=== PATIENT | female | born 1995 | race African-American/Black ===

== ENCOUNTER 2018-02-19 11:33 | Emergency (ER) | END 2018-02-19 14:36 | disposition home or self-care (01) ==

== ENCOUNTER 2018-05-29 15:42 | Inpatient (IN) | payer OTHER ==
[~2018-05-29] VITALS: Ht 162.6 cm; Wt 60.1 kg
[~2018-05-29 15:42] MED LIST: ACET500C5 PO; RANI150T35 PO
[2018-05-29 16:09] VITALS: BP 135/86; PULSE 67; RESP 20; Ht 162.6 cm; Wt 60.1 kg
[2018-05-29] MEDS ORDERED: LACTATED RINGER'S 500 ML IV SCH (17:00)
[2018-05-29] MEDS: TERBUTALINE 1 MG/ML INJ SC PRN ×2 (17:03→17:53)
[2018-05-29] MEDS ORDERED: MAGNESIUM SULFATE 4 GM/100 ML 100 ML IV ONE (19:00)
--- NOTE | 2018-05-29 19:32 | TRIAGE ---
OB Triage Datetime Report Generated by CPN: 05/29/2018 19:32 Datetime: 05/29/2018 19:19 Membrane Status: Intact Datetime: 05/29/2018 19:00 Labor Evaluation Frequency: 2-7 Monitor Mode: External Duration (sec)2399: 60 Quality: Mild Pattern: Normal: <= 5 Contractions in 10 Minutes Resting Tone [place]: Relaxed Heart Rate FHR Baseline Rate: 150 Monitor Mode: External US FHR Baseline Changes: No Baseline Change Variability: Moderate 6-25 bpm Accelerations: 15X15 Decelerations: None Category: Category I Pain Assessment Pain Scale: 7 Pain Presence: Intermittent Pain Type: Contraction Pain Location: Abdomen Pain Goal: 0 Datetime: 05/29/2018 17:59 Labor Evaluation Frequency: 2-5 Monitor Mode: External Duration (sec)2399: 40-80 Quality: Mild Pattern: Normal: <= 5 Contractions in 10 Minutes Resting Tone [place]: Relaxed Heart Rate FHR Baseline Rate: 145 Monitor Mode: External US FHR Baseline Changes: No Baseline Change Variability: Moderate 6-25 bpm Accelerations: 15X15 Decelerations: None Category: Category I Pain Assessment Pain Scale: 7 Pain Presence: Intermittent Pain Type: Contraction Pain Location: Abdomen Pain Goal: 0 Datetime: 05/29/2018 17:30 Labor Evaluation Frequency: 2-23 Monitor Mode: External Duration (sec)2399: 40-60 Quality: Mild Pattern: Normal: <= 5 Contractions in 10 Minutes Resting Tone [place]: Relaxed Heart Rate FHR Baseline Rate: 140 Monitor Mode: External US FHR Baseline Changes: No Baseline Change Variability: Moderate 6-25 bpm Accelerations: 15X15 Decelerations: None Category: Category I Pain Assessment Pain Scale: 7 Pain Presence: Intermittent Pain Type: Contraction Pain Location: Abdomen Pain Goal: 0 Datetime: 05/29/2018 17:25 Vaginal Exam Dilatation (cms): 0.0 Exam By: MELINDA Datetime: 05/29/2018 17:00 Labor Evaluation Frequency: 2-8 Monitor Mode: External Duration (sec)2399: 40-80 Quality: Strong Pattern: Normal: <= 5 Contractions in 10 Minutes Resting Tone [place]: Relaxed Heart Rate FHR Baseline Rate: 130 Monitor Mode: External US FHR Baseline Changes: No Baseline Change Variability: Moderate 6-25 bpm Accelerations: 15X15 Decelerations: None Category: Category I Pain Assessment Pain Scale: 7 Pain Presence: Intermittent Pain Type: Contraction Pain Location: Abdomen Pain Goal: 0 Datetime: 05/29/2018 15:57 Stage of : OB Triage Assessment Type: Triage Time of Arrival: 05/29/2018 15:36 EGA: 33.0 Chief Complaint: UC'S SINCE 1500 AND LEAKING SINCE 05/28/18 @ 1400 Movement: Present Contractions: Regular Time Contractions Began: 05/29/2018 15:00 Contractions: 5 Rupture of Membranes: Unsure Vaginal Discharge: Present Recent Sexual Intercouse: Denies Abdominal Trauma: Not Applicable Patient Complaints: Contractions Time Provider Notified: 05/29/2018 16:31 Provider Notified: DR BARRERA Initial Plan: EFM, BPP, EFW Maternal Assessment Level of Consciousness: Fully Conscious DTR's/Clonus: DTRs 2+; No Clonus Headache: Denies Blurred Vision: No Respiratory Effort: Unlabored; Regular Rhythm; Equal Expansion Nausea/Vomiting: Denies RUQ Epigastric Pain: Denies Lower Extremities Edema: None Degree: None Upper Extremities Edema: None Degree: None Facial Edema: None Fall Risk Assessment History of Falling: (0) No Secondary Diagnosis: (0) No Ambulatory Aid: (0) Bedrest/Nurse Assist IV Therapy: (0) No Gait: (0) Normal/Bedrest/Immobile Mental Status: (0) Oriented to Own Ability Fall Score: 0 Fall Risk Score Definition: No Risk: No action required
[2018-05-29] MEDS ORDERED: ONDANSETRON 4 MG INJ IV PRN (20:00)
[2018-05-29] MEDS: MAGNESIUM SULFATE 20 GM/500 ML 500 ML IV SCH (20:01)
[2018-05-29] MEDS: FERROUS SULFATE (EC) 325 MG TAB PO SCH (21:00)
[2018-05-29] MEDS: ACETAMINOPHEN 325 MG TAB PO PRN (22:56)
[2018-05-29] MEDS: DEXAMETHASONE 4 MG/ML 5 ML INJ IM SCH (23:03)
[2018-05-30] MEDS: LACTATED RINGER'S 1,000 ML IV SCH ×4 (00:13→19:00)
--- NOTE | 2018-05-30 05:08 | PREOPHP ---
DATE OF ADMISSION: 05/29/2018 HISTORY OF PRESENT ILLNESS: This is a 22-year-old lady, 2, para 1. Her EDC is 07/17/2018. Admitted to 33 weeks , admitted to labor and delivery area complaining of lower abdominal marilu ns and low back pains. This started about a few hours prior to admission and got worse up to the don e of admission. The patient claims that she may have ruptured her bag of water. She had ca re in my [place] office as a late entry when she came in March 2018. This patient has a history o f labor and delivered her first child at 35 weeks. She claims that with the first child, sh e had high blood pressure and her bag of water ruptured. PAST PERSONAL HISTORY: No history of diabetes, TB, asthma. ALLERGIES: NO ALLERGIES. SOCIAL HISTORY: Patient does not smoke. She does not drink. MEDICATIONS: She does not take any drugs except her iron and vitamins. GYNECOLOGIC HISTORY: She had menarche at the age of 16, every 28 days interval, 3 to 4 days duration , and moderate in amount. FAMILY HISTORY: Her mother and aunt have diabetes and mother has hypertension. She is 2, pa ra 1. Her first delivery was on 11/20/2016 at 35 weeks, normal delivery. REVIEW OF SYSTEMS: CARDIOVASCULAR: No chest pains. RESPIRATORY: No cough. GASTROINTESTINAL: No diarrhea, no vomiting. GENITOURINARY: No dysuria. PHYSICAL EXAMINATION: GENERAL: Reveals a conscious, coherent lady in no acute distress. VITAL SIGNS: Her blood pressure 120/80, pulse rate 80 per minute, respirations 16 per minute. BREASTS, HEART AND LUNGS: Within normal limits. ABDOMEN: Soft, fundic height 30 cm. heart tones 140 per minute. PELVIC: Deferred. EXTREMITIES: No pedal edema. ADMITTING DIAGNOSIS: A 33 week intrauterine , rule out labor, rule out ruptured bag of water. The patient had an ultrasound done and the ultrasound revealed an MAURA of 19. She had ROM plus and it was negative. FFN was positive. Ultrasound showed that the external os was closed and the internal os is 1 cm dilated. PLAN: The patient was planned to have IV hydration and all labs to be done, including CBC, and the C BC was normal. She was given terbutaline followed by magnesium sulfate, as well she was given betame thasone. She will have perinatology consult. The plans were explained to the patient and she unders tood everything totally. The risks, benefits, and alternatives were discussed with her as well. Dictated By: LISETTE ARTIS/NTS Conf#: [id number] DID#: [id number] CC: LISETTE BARRERA MD;*EndCC*
[2018-05-30] MEDS: MAGNESIUM SULFATE 20 GM/500 ML 500 ML IV SCH ×2 (06:02→16:58)
[2018-05-30] MEDS: PRENATAL VITAMIN PO SCH (10:15)
[2018-05-30] MEDS: FERROUS SULFATE (EC) 325 MG TAB PO SCH ×3 (10:15→21:35)
[2018-05-30] MEDS: DEXAMETHASONE 4 MG/ML 5 ML INJ IM SCH ×2 (11:06→23:28)
[2018-05-30] MEDS: CEFAZOLIN 2 GM/50 ML (PMX) 50 ML IVPB SCH ×2 (13:21→22:29)
[2018-05-30] MEDS: ACETAMINOPHEN 325 MG TAB PO PRN ×2 (14:08→18:23)
[2018-05-30] MEDS ORDERED: BISACODYL (EC) 5 MG TAB PO ONE ×2 (15:30→19:00)
[2018-05-30] MEDS: AL HYDROX/MG HYDROX/SIMETH 30 ML CUP PO PRN ×2 (15:30→18:31)
[2018-05-30] MEDS ORDERED: DOCUSATE SODIUM 100 MG CAP PO PRN (19:00)
[2018-05-30] MEDS ORDERED: MAGNESIUM HYDROXIDE 30ML CUP PO SCH (21:00)
[2018-05-31] MEDS: LACTATED RINGER'S 1,000 ML IV SCH (01:33)
--- NOTE | 2018-05-31 04:24 | PN ---
DATE: 05/30/2018 SUBJECTIVE: The patient feels good. No complaint of lower abdominal pains. OBJECTIVE: VITAL SIGNS: She is afebrile. Vital signs stable. ABDOMEN: Soft, no tenderness noted. Fundic height is 33 cm. heart tones 140 per minute. No discharge noted. EXTREMITIES: No calf tenderness. ASSESSMENT: A 33 and 1/7 weeks intrauterine with urinary tract infection and labor . PLAN: To continue with the dexamethasone and to put her on magnesium sulfate 1 gram per hour. She w as feeling weak and the magnesium level is 6.1. Dr. Sinclair is going to see the patient tomorrow. Dictated By: LISETTE BARRERA MD NS/NTS Conf#: [id number] DID#: [id number] CC: NADIR BAIG MD;*EndCC*
[2018-05-31] MEDS: CEFAZOLIN 2 GM/50 ML (PMX) 50 ML IVPB SCH ×2 (06:00→15:10)
[2018-05-31] MEDS ORDERED: MAGNESIUM HYDROXIDE 30ML CUP PO PRN (06:30)
[2018-05-31] MEDS: DOCUSATE SODIUM 100 MG CAP PO SCH ×2 (09:00→13:00)
[2018-05-31] MEDS: FERROUS SULFATE (EC) 325 MG TAB PO SCH ×2 (10:09→15:13)
[2018-05-31] MEDS: PRENATAL VITAMIN PO SCH (10:09)
[2018-05-31] MEDS: MAGNESIUM SULFATE 20 GM/500 ML 500 ML IV SCH (10:11)
[2018-05-31] MEDS: ACETAMINOPHEN 325 MG TAB PO PRN (11:02)
[2018-05-31] MEDS: DEXAMETHASONE 4 MG/ML 5 ML INJ IM SCH (11:02)
--- NOTE | 2018-06-02 10:44 | PN ---
DATE: 05/31/2018 TIME: 8:00 a.m. SUBJECTIVE: The patient feels good. Has minimal lower abdominal pains. OBJECTIVE: VITAL SIGNS: She is afebrile. Vital signs stable. ABDOMEN: Soft. No tenderness noted. PELVIC: Revealed the cervix to be closed. No bleeding noted. EXTREMITIES: No pedal edema. ASSESSMENT: A 33-2/7 week's intrauterine . History of labor in labor. PLAN: Patient was advised to wait for Dr. Sinclair as a consultation was requested and the patient agre ed to wait for Dr. Sinclair. Dictated By: LISETTE BARRERA MD NS/NTS Conf#: [id number] DID#: [id number] CC: LISETTE BARRERA MD;*EndCC*
--- NOTE | 2018-06-02 10:49 | DS ---
DATE OF ADMISSION: 05/29/2018 DATE OF DISCHARGE: 05/31/2018 Against medical advice 05/31/2018. HISTORY OF PRESENT ILLNESS: See dictated history and physical. PHYSICAL EXAMINATION: See dictated history and physical. ADMITTING DIAGNOSIS: 33 weeks intrauterine with labor, progress of labor. PROGRESS OF LABOR: See dictated history and physical. Patient was advised to be observed in the [facility]. She has a history of labor and medications were given to her and she felt better and no pain. On 05/31/2018 patient called me that the patient wanted to sign home against medical advic e. I spoke with the patient. I counseled her and she still wanted to go for AMA, so she was dischar [facility] home AMA and she was told to keep her appointment in the clinic. She was discharged home AMA. DISCHARGE DIAGNOSIS: 33 and 2/7 weeks intrauterine . FINAL DIAGNOSIS: 33 and 2/7 weeks intrauterine who presents labor, history of pret erm labor. Dictated By: LISETTE BARRERA MD NS/NTS Conf#: [id number] DID#: [id number] CC: LISETTE BARRERA MD;*EndCC*
--- NOTE | 2018-06-03 14:06 | CONS ---
DATE OF ADMISSION: 05/29/2018 DATE OF CONSULTATION: 05/31/2018 HISTORY OF PRESENT ILLNESS: The patient is IUP at 33 weeks and 3 days, presented with abdominal pain . Cervical length was 3 mm. She was placed on magnesium sulfate, given dexamethasone. Prior history of delivery at 35 weeks. REVIEW OF SYSTEMS: All systems reviewed. They are negative. PHYSICAL EXAMINATION: VITAL SIGNS: Stable. Physical examination deferred. heart tones are reassuring for gestational age. Contractions n one, but irritability. IMPRESSION: Intrauterine at 33 weeks and 3 days with labor on dexamethasone. RECOMMENDATIONS: In-house management at least for 1 week, probably more than that given her very isauro rt cervical length. Stop the magnesium sulfate 24 hours after the second dose of dexamethasone. After that, Procardia 10 -20 mg every 6 hours, depending on her blood pressure, would be beneficial. Estimated weight and NICU consult. Dictated By: ARYAN GARCIA MD ST/NTS Conf#: [id number] DID#: [id number] CC: LISETTE BARRERA MD;*EndCC*
== END 2018-05-31 18:46 | disposition left against medical advice (07) | DRG 832 ==
LOC: OBT 15:42 → L-D 15:43 → OBT 18:55 → PP1 05-30 00:14
PROVIDERS: ADMIT Obstetrics & Gynecology; ATTEND Obstetrics & Gynecology
DX: O60.03 Preterm labor without delivery, third trimester (principal); O23.43 Unspecified infection of urinary tract in pregnancy, third trimester; O26.873 Cervical shortening, third trimester; O09.213 Supervision of pregnancy with history of pre-term labor, third trimester; Z3A.33 33 weeks gestation of pregnancy
CPT/HCPCS: 36415; 76815; 76817; 76818; 81001; 82731; 83735; 84112; 85025; 86592; 86900; 86901; 87086; 96360; 96361; 96372; G0463; J0690; J1100; J2405; J3105; J3475; J7120

== ENCOUNTER 2018-06-02 21:55 | Inpatient (IN) | payer OTHER ==
[~2018-06-02] VITALS: Ht 162.6 cm; Wt 64.2 kg
[2018-06-02 21:41] VITALS: Ht 162.6 cm; Wt 64.2 kg
[2018-06-02 22:00] VITALS: BP 138/92; PULSE 74; RESP 17
[2018-06-03] MEDS ORDERED: AL HYDROX/MG HYDROX/SIMETH 30 ML CUP PO PRN (02:00)
[2018-06-03] MEDS ORDERED: TERBUTALINE 1 MG/ML INJ SC PRN (02:00)
[2018-06-03] MEDS: LACTATED RINGER'S 1,000 ML IV SCH ×2 (02:08→03:46)
[2018-06-03] MEDS ORDERED: HYDROCODONE/APAP (5/325) TAB PO ONE (05:00)
--- NOTE | 2018-06-03 05:07 | HP ---
Date/Time of Note Date/Time of Note DATE: 06/03/18 TIME: 04:53 OB - History Hx of Present Free Text/Dictation 22 years old 2 para 1001 with single intrauterine at 33 weeks and 4 days with a ELLA of 07/17/2018 presented to triage with complaint of uterine contractions. She states good movement. She denies nausea, vomiting, shortness of breath, chest pain, headache, visual changes, vaginal bleeding or LOF. She was admitted here for short cervix (0.3 cm), currently is steroid benefited. She received magnesium sulfate 2. She is signed AMA and left the hospital few days ago. Chief Complaint: Uterine contractions Estimated Due Date: Jul 17, 2018 : 2 Para: 1 Spontaneous : 0 Therapeutic : 0 Care: Good Care Ultrasounds: Normal mid trimester US Obstetrical Complications: None Medical Complications: None Past Family/Social History * Past Medical, Surgical, Family and Obstetric Histories reviewed from chart. OB Admission Exam Vital Signs Vital Signs Vital Signs Date Temp Pulse Resp B/P (MAP) Pulse Ox O2 O2 Flow FiO2 Time Delivery Rate 06/02/18 98.6 74 17 138/92 Room Air 22:00 (107) Physical Exam HEENT: WNL Heart: Rhythm Normal Lungs: Clear Abdomen: WNL Extremities: Normal Membranes: Intact Heart Rate: 130's Accelerations: Accelerations Present Decelerations: No Decelerations Varibility: Moderate Contractions on Admission: 6-10 Minutes Apart Intensity: Mild Last 72 hours Lab Results CBC & BMP 06/03/18 02:27 Liver Function Test 06/03/18 02:27 Alanine Aminotransferase (ALT/SGPT) 16 Albumin 2.8 L Alkaline Phosphatase 162 H Aspartate Amino Transf (AST/SGOT) 21 Direct Bilirubin 0.00 Total Protein 5.9 L OB Assessment/Plan Other plan: 22-year-old 2 para 1001 with single intrauterine at 33 weeks and 1 day with short cervix 1. care - heart rate category 1 -Continue external monitoring and toco -Ferrous sulfate 325 mg and -Weekly weight 2. Short cervix -She is a status post receiving magnesium sulfate and betamethasone. Currently is steroid benefit -IV fluid, she received terbutalinex1 -Urinalysis, urine culture -Procardia 10 mg every 8 hours p.o. -Neonatology and trevin-neonatology consult -Follow-up with her primary OB 3) history of positive urine drug screen for marijuana: Urine drug screen ordered ROBER SHAFER Jun 03, 2018 05:07
[2018-06-03] MEDS ORDERED: NIFEdipine 10 MG CAP PO SCH ×2 (06:00→14:00)
[2018-06-03] MEDS: PRENATAL VITAMIN PO SCH (11:15)
[2018-06-03] MEDS: ONDANSETRON 4 MG INJ IV PRN (11:22)
[2018-06-03] MEDS: DOCUSATE SODIUM 100 MG CAP PO SCH (21:00)
[2018-06-03] MEDS: ACETAMINOPHEN 325 MG TAB PO PRN (21:18)
--- NOTE | 2018-06-03 23:08 | PREOPHP ---
DATE OF ADMISSION: 06/03/2018 HISTORY OF PRESENT ILLNESS: This is a 22-year-old lady, 2 para 1 and her EDC 07/17/2018, at 33 and 4/7 weeks, readmitted because of lower abdominal pains and low back pains that started about a few hours prior to admission. This patient signed AMA about a few days prior to this admission and this time she wanted to stay because she has contractions. She had care in [facility] and the care was uneventful. PAST PERSONAL HISTORY: No history of diabetes, TB, asthma. ALLERGIES: NO ALLERGIES. SOCIAL HISTORY: The patient does not smoke. She does not drink. MEDICATIONS: She does not take any drugs except her iron and vitamins. GYNECOLOGIC HISTORY: She had menarche at the age of 16, every 28 days interval, 3 to 4 days duration , and moderate in amount. FAMILY HISTORY: On mother's side have diabetes. Mother has hypertension. She is 2, para 1. Her first delivery was in 2017. Delivered at 35 weeks . REVIEW OF SYSTEMS: CARDIOVASCULAR: No chest pains. RESPIRATORY: No cough. GASTROINTESTINAL: No diarrhea, no vomiting. GENITOURINARY: No dysuria. PHYSICAL EXAMINATION: GENERAL: Reveals a conscious, coherent lady and in no acute distress. VITAL SIGNS: Her blood pressure 120/80, pulse rate 80 per minute, respirations 16 per minute. BREASTS, HEART AND LUNGS: Within normal limits. ABDOMEN: Soft. No tenderness noted. Fundic height 33 cm. heart tones 140 per minute. PELVIC: Done, revealed the cervix to be closed. EXTREMITIES: No pedal edema. ADMITTING DIAGNOSES: A 33 and 4/7 weeks intrauterine with labor. PLAN: The patient was planned to be admitted, to bed rest and IV hydration and the plans were explai francisco to the patient and she understood everything totally. The risks, benefits, and alternatives were discussed with her as well and also perinatologist consult is to be redone. Dictated By: LISETTE ARTIS/RHETT Conf#: [id number] DID#: [id number]
[2018-06-04] MEDS: NIFEdipine 10 MG CAP PO SCH ×3 (00:08→12:00)
[2018-06-04] MEDS: LACTATED RINGER'S 1,000 ML IV SCH ×3 (02:00→11:28)
[2018-06-04] MEDS: PRENATAL VITAMIN PO SCH (10:24)
[2018-06-04] MEDS: DOCUSATE SODIUM 100 MG CAP PO SCH ×3 (10:24→21:00)
[2018-06-04] MEDS: ACETAMINOPHEN 325 MG TAB PO PRN (10:28)
[2018-06-04] MEDS ORDERED: MAGNESIUM SULFATE 4 GM/100 ML 100 ML IVPB ONE (12:00)
[2018-06-04] MEDS: FAMOTIDINE 20 MG INJ IV SCH ×2 (12:21→21:00)
[2018-06-04] MEDS: MAGNESIUM SULFATE 20 GM/500 ML 500 ML IV SCH ×2 (12:53→22:56)
--- NOTE | 2018-06-04 15:23 | PREAC ---
Date/Time of Note Date/Time of Note DATE: 06/04/18 TIME: 15:22 Anesthesia Eval and Record Evaluation Time Pre-Procedure Interview DATE: 06/04/18 TIME: 15:22 Age 22 Sex female NPO: Other less than an hour Preoperative diagnosis preeclampsia Planned procedure c section Past Medical History Past Medical History: Includes : Gestational age: (33.6) Surgery & Anesthesia Issues No known issue Meds Anticoagulation: No Beta Ilan within 24 hr: No Reason Beta Ilan not given: Pt. not on B-Ilan Discontinued Scripts Ranitidine Hcl* (Zantac*) 150 Mg Tablet, 150 MG PO BID PRN for EPIGASTRIC PAIN, #30 TAB Prov:DAMIAN ARNDT [employer] GENERALIST 02/19/18 Acetaminophen* (Tylophen*) 500 Mg Capsule, 1 CAP PO Q6H PRN for PAIN AND OR ELEVATED TEMP, #20 CAP Prov:DAMIAN ARNDT H[employer] GENERALIST 02/19/18 Current Medications Lactated Ringer's 1,000 ml @ 125 mls/hr Q8H IV Last administered on 06/04/18 11:28; Admin Dose 125 MLS/HR; Start 06/03/18 at 02:00 Terbutaline Sulfate (Brethine) 0.25 mg PRN PRN SC CONTRACTIONS Last administered on 06/03/18 03:50; Admin Dose 0.25 MG; Start 06/03/18 at 02:00 Prenat Multivit/ [place]/Iron/Folic Ac () 1 tab DAILY PO Last administered on 06/04/18 10:24; Admin Dose 1 TAB; Start 06/03/18 at 09:00 Acetaminophen (Tylenol Tab) 650 mg Q4H PRN PO .PAIN OR TEMP Last administered on 06/04/18 10:28; Admin Dose 650 MG; Start 06/03/18 at 02:00 Al Hydrox/Mg Hydrox/Simethicone (Mag-Al Plus) 30 ml Q6H PRN PO .GI UPSET Last administered on 06/04/18 10:29; Admin Dose 30 ML; Start 06/03/18 at 02:00 Ondansetron HCl (Zofran Inj) 4 mg Q6H PRN IV NAUSEA/VOMITING Last administered on 06/03/18 11:22; Admin Dose 4 MG; Start 06/03/18 at 02:00 Docusate Sodium (Colace) 100 mg TID PO Last administered on 06/04/18at 10:24; Admin Dose 100 MG; Start 06/03/18 at 21:00 Nifedipine (Procardia) 10 mg Q6H PO Last administered on 06/04/18at 06:04; Admin Dose 10 MG; Start 06/04/18 at 00:00 Magnesium Sulfate 500 ml @ 50 mls/hr Q10H IV Last administered on 06/04/18at 12:53; Admin Dose 50 MLS/HR; Start 06/04/18 at 12:00 Famotidine (Pepcid Iv) 20 mg BID IV Last administered on 06/04/18at 12:21; Admin Dose 20 MG; Start 06/04/18 at 12:00 Cefazolin Sodium/ Dextrose 50 ml @ 100 mls/hr ONCE IVPB ; Start 06/04/18 at 15:30; Status UNV Oxytocin/Lactated Ringer's 500 ml @ 0 mls/hr ONCE PRN IV .VAGINAL BLEEDING; Start 06/04/18 at 15:30; Status UNV Carboprost Tromethamine (Hemabate) 250 mcg ONCE PRN IM .VAGINAL BLEEDING; Start 06/04/18 at 15:30; Status UNV Misoprostol (Cytotec) 1,000 mcg ONCE PRN [place] .VAGINAL BLEEDING; Start 06/04/18 at 15:30; Status UNV Meds reviewed: Yes Allergies Coded Allergies: No Known Allergy (Unverified , 05/29/18) Allergies Reviewed: Yes Labs/Studies Labs Reviewed: Reviewed by anesthesiologist Result Diagram: 06/04/18 1200 06/04/18 1200 Laboratory Tests 06/04/18 12:00 test: Positive Studies: ECG (n/a), CXR (n/a) Pre-procedure Exam Last vitals Vital Signs Date Temp Pulse Resp B/P (MAP) Pulse Ox O2 O2 Flow FiO2 Time Delivery Rate 06/03/18 98.2 22:03 06/02/18 74 17 138/92 Room Air 22:00 (107) Airway: Adequate mouth opening Mallampati: Mallampati I Teeth: Normal Lung: Normal Heart: Normal ASA Physical Status ASA physical status: 2 Emergency: E Planned Anesthetic Neuraxial: Spinal Planned Pain Management Sub-arachniod narcotics Pre-operative Attestations Prior to commencing anesthesia and surgery, the patient was re-evaluated, there was verification of: *The patient's identity *The results of appropriate recent lab work and preoperative vital signs *The above evaluation not changing prior to induction *Anesthetic plan, risk benefits, alternative and complications discussed with patient/family; questions answered; patient/family understands, accepts and wishes to proceed. MISSY MATHEW MD Jun 04, 2018 15:23
[2018-06-04] MEDS ORDERED: CEFAZOLIN 2 GM/50 ML (PMX) 50 ML IVPB SCH (15:30)
[2018-06-04] MEDS ORDERED: MISOPROSTOL 200 MCG TAB PR PRN ×2 (15:30→17:30)
[2018-06-04] MEDS ORDERED: CITRIC ACID/NA CITRATE 30 ML CUP PO ONE (15:30)
[2018-06-04] MEDS ORDERED: OXYTOCIN 30 UNITS/LR 500 ML IV PRN ×2 (15:30→17:30)
[2018-06-04] MEDS ORDERED: CARBOPROST 250 MCG INJ IM PRN ×2 (15:30→17:30)
[2018-06-04] MEDS ORDERED: METOCLOPRAMIDE 10 MG INJ ONE ×2 (15:39→16:10)
--- NOTE | 2018-06-04 15:54 | PREOPHP ---
DATE OF ADMISSION: 06/03/2018 HISTORY OF PRESENT ILLNESS: This is a 22-year-old lady, 2, para 1 delivered at weeks p regnant, readmitted to labor and delivery for observation because of labor. She also has bor derline hypertension on admission. Because of the contractions, she is on Procardia 10 mg q.[address] Sinclair's requisition. PAST PERSONAL HISTORY: See dictated history and physical. PHYSICAL EXAMINATION: See dictated history and physical. ADMITTING DIAGNOSES: 1. A 33 and 4/7 weeks intrauterine . 2. History of labor. 3. -induced hypertension. HOSPITAL COURSE: The patient was observed in the hospital and in the afternoon around 2:00, the gui ent was reevaluated. In the morning, I was called by her nurse that she was having epigastric pain a nd headache. I consulted Dr. Sinclair and Dr. Sinclair advised her to have Pepcid and also I started her o n magnesium sulfate. Around 3:00, the patient still has some epigastric pain and her blood pressure was greater than 150/100. Dr. Sinclair called me and she advised the patient to be delivered. I reeval uated the patient. The cervix is closed and the station is floating. Because of the severe epigastr ic pain and also for her elevated blood pressure in spite of magnesium sulfate, the plans of delivery were explained to the patient as to go for vaginal delivery to be induced or to go for . T he patient wanted to go for for severe PIH and history of labor. The plans were ex plained to the patient and she understood everything totally. Dictated By: LISETTE ARTIS/RHETT Conf#: [id number] DID#: [id number]
[2018-06-04] MEDS ORDERED: morphine SULFATE/PF (10 MG/10 ML) INJ ONE (16:08)
[2018-06-04] MEDS ORDERED: KETOROLAC 30 MG INJ ONE (16:10)
--- NOTE | 2018-06-04 16:19 | CONS ---
DATE OF ADMISSION: 06/03/2018 DATE OF CONSULTATION: 06/04/2018 The patient I was notified has been having elevated blood pressure, headache and epigastric pain. Sh e received Mylanta and did not respond. I looked over her blood pressures and she has had more than few severe range blood pressures. Liver enzymes are normal. Platelet is normal, so is the creatinin e. However secondary to severe range blood pressure, constant epigastric pain not responding to Pepc id, I do recommend delivery and magnesium sulfate for seizure prophylaxis. The patient received dexa methasone very recently. Dictated By: ARYAN GARCIA MD ST/NTS Conf#: [id number] DID#: [id number] CC: LISETTE BARRERA MD;*End*
[2018-06-04] MEDS ORDERED: EPHEDrine 25 MG/5 ML SYG ONE (17:04)
[2018-06-04] MEDS ORDERED: LACTATED RINGER'S 1,000 ML IV SCH (17:26)
[2018-06-04] MEDS ORDERED: OXYTOCIN 30 UNITS/LR 500 ML IV SCH (17:26)
--- NOTE | 2018-06-04 17:26 | OPPN ---
Date/Time of Note Date/Time of Note DATE: 06/04/18 TIME: 17:24 Operative Report Planned Procedure Procedure date Jun 04, 2018 Procedure(s) PRIMARY CSECTION Performed by see signature line Professor Of Sport Management: JERMAINE DHILLON M.D. 2nd Professor Of Sport Management none Pre-procedure diagnosis 33 WEEKS 5 DAYS LABOR SEVERE PIH [id number] Anesthesia Type: [id number] spinal Post-Procedure Post-procedure diagnosis 33 WEEKS 5 DAYS LABOR SEVERE PIH Findings Live Baby , Apgars 8and 9, weight 3LBS 14OZ Estimated Blood Loss: 500 - 600 mls Specimen(s) none Grafts/Implant(s) PLACENTA Complication(s) none LISETTE BARRERA MD Jun 04, 2018 17:26
[2018-06-04] MEDS ORDERED: LANOLIN HPA 1 PKT TOP PRN (17:30)
[2018-06-04] MEDS ORDERED: morphine 2 MG INJ IV PRN ×3 (17:30)
[2018-06-04] MEDS ORDERED: METHYLERGONOVINE 0.2 MG INJ IM PRN (17:30)
[2018-06-04] MEDS ORDERED: NALOXONE (0.4 MG/ML) INJ IV PRN (17:30)
[2018-06-04] MEDS ORDERED: KETOROLAC 30 MG INJ IV PRN (17:30)
[2018-06-04] MEDS ORDERED: METHYLERGONOVINE 0.2 MG TAB PO PRN (17:30)
[2018-06-04] MEDS ORDERED: morphine (1 MG/ML) 10ML SYRINGE IV PRN ×3 (17:30)
[2018-06-04] MEDS ORDERED: DIPHENHYDRAMINE 50 MG INJ IV PRN ×2 (17:30)
[2018-06-04] MEDS ORDERED: HYDROCODONE/APAP (5/325) TAB PO PRN (17:30)
[2018-06-04] MEDS ORDERED: ONDANSETRON 4 MG INJ IV PRN ×2 (17:30)
[2018-06-04 20:20] VITALS: BP 140/96; PULSE 82; RESP 19
[2018-06-04 21:00] VITALS: BP 134/81; PULSE 75; RESP 18
[2018-06-04] MEDS: SENNA/DOCUSATE NA (8.6MG/50MG) TAB PO SCH (21:00)
--- NOTE | 2018-06-04 21:06 | PAC ---
Date/Time of Note Date/Time of Note DATE: 06/04/18 TIME: 21:05 Post-Anesthesia Notes Post-Anesthesia Note Last documented vital signs Vital Signs Date Temp Pulse Resp B/P (MAP) Pulse Ox O2 O2 Flow FiO2 Time Delivery Rate 06/04/18 98.2 78 19 121/85 97 22:03 06/02/18 74 17 138/92 Room Air 22:00 (107) Activity: WNL Respiratory function: WNL Cardiovascular function: WNL Mental status: Baseline Pain reasonably controlled: Yes Hydration appropriate: Yes Nausea/Vomiting absent: No MISSY MATHEW MD Jun 04, 2018 21:06
[2018-06-04 22:00] VITALS: BP 132/88; PULSE 75; RESP 18
[2018-06-04 23:00] VITALS: BP 133/91; PULSE 83; RESP 18
[2018-06-04] MEDS: ONDANSETRON 4 MG INJ IV PRN (23:05)
[2018-06-05] VITALS (19 sets, daily range): BP systolic 118–134; BP diastolic 61–93; PULSE 72–100; RESP 16–19
[2018-06-05] MEDS: NIFEdipine 10 MG CAP PO SCH ×5 (00:27→17:30)
--- NOTE | 2018-06-05 06:56 | OPPN ---
Date/Time of Note Date/Time of Note DATE: 06/05/18 TIME: 06:55 Anesthesia Follow up Anesthesia Follow up Last documented vital signs Vital Signs Date Temp Pulse Resp B/P (MAP) Pulse Ox O2 O2 Flow FiO2 Time Delivery Rate 06/05/18 75 18 131/75 04:00 (93) 06/05/18 97.9 97 00:00 06/04/18 Room Air 20:20 Respiratory function: WNL Cardiovascular function: WNL Comments A 22 year female. with spinal duramorph for post op pain POD#1 is doing fine. No headache, itching, N/V, pain, neural deficit. MISSY MATHEW MD Jun 05, 2018 06:56
[2018-06-05] MEDS: PRENATAL VITAMIN PO SCH (09:00)
[2018-06-05] MEDS: FAMOTIDINE 20 MG INJ IV SCH ×2 (09:00→21:00)
[2018-06-05] MEDS: SENNA/DOCUSATE NA (8.6MG/50MG) TAB PO SCH ×2 (09:00→21:00)
[2018-06-05] MEDS: DOCUSATE SODIUM 100 MG CAP PO SCH ×3 (09:00→21:35)
[2018-06-05] MEDS: MAGNESIUM SULFATE 20 GM/500 ML 500 ML IV SCH (10:20)
--- NOTE | 2018-06-05 15:59 | PN ---
Date/Time of Note Date/Time of Note DATE: 06/05/18 TIME: 15:57 Assessment/Plan VTE Prophylaxis Risk score (from Ns)>0 risk: 3 SCD applied (from Ns): Yes Pharmacological prophylaxis: NA/contraindicated Pharm contraindication: low risk/ambulating Lines/Catheters IV C[facility]ter Type (from [facility]): Peripheral IV Assessment/Plan Assessment/Plan POSTCSECTION DAY 1 CHRONIC IRON ANEMIA ORDERED ADVANCE DIET TOLERATED CBC ON 3RD POSTOP DAY Result Diagram: 06/05/18 0610 06/05/18 0610 Results 24hrs Laboratory Tests Test 06/04/18 16:55 06/04/18 16:56 06/04/18 18:46 06/05/18 00:21 Blood Gas CBV CBA Specimen Source Arterial Blood 06/04/2018 5:10: 06/04/2018 5:11: Date Drawn 47 PM 02 PM Arterial Blood CORD CORD Gas Puncture Site Siddhartha Test N/A N/A Cord Blood 0.3 0.7 Carboxyhemoglobi n Cord Arterial 7.255 Blood pH Cord Arterial 62.6 H Blood PCO2 Cord Arterial 27.1 Blood HCO3 Cord Arterial -1.6 Blood Base Excess Cord Arterial 15.6 Blood Hemoglobin Cord Arterial 12.1 Blood Oxyhemoglo bin Cord Arterial 2.0 Blood Methemoglo bin Blood Gas 37.0 37.0 Temperature Blood Gas ROOM AIR ROOM AIR Modality FiO2 21.0 21.0 Blood Gas A MAN RN Critical Value Read Back Blood Gas [facility] Notified Whom Blood Gas 06/04/2018 5:23: 06/04/2018 5:29: Notified Time 24 PM 37 PM Cord Venous 7.357 Blood pH Cord Venous 43.1 Blood PCO2 Cord Venous 20.3 Blood PO2 Cord Venous 23.6 Blood HCO3 Cord Venous -1.9 Blood Base Excess POC Cord Venous 51.1 Blood Oxygen Sat Cord Venous 15.9 Blood Hemoglobin Cord Venous 49.9 Blood Oxyhemoglo bin Cord Venous 1.6 Blood Methemoglo bin Blood Gas A-a O2 77.8 Differential Magnesium Level 4.7 H 5.8 *H Test 06/05/18 06:10 06/05/18 06:43 06/05/18 12:00 White Blood 10.6 # Count Red Blood Count 3.65 L Hemoglobin 9.4 L Hematocrit 29.4 L Mean Corpuscular 80.5 Volume Mean Corpuscular 25.8 L Hemoglobin Mean Corpuscular 32.0 Hemoglobin Yessy nt Red Cell 14.9 H Distribution Width Platelet Count 252 Mean Platelet 9.8 Volume Immature 0.600 H Granulocytes % Neutrophils % 83.2 H Lymphocytes % 10.5 L Monocytes % 5.1 Eosinophils % 0.4 Basophils % 0.2 Nucleated Red 0.0 Blood Cells % Immature 0.060 H Granulocytes # Neutrophils # 8.9 H Lymphocytes # 1.1 Monocytes # 0.5 Eosinophils # 0.0 Basophils # 0.0 Nucleated Red 0.0 Blood Cells # Sodium Level 132 L Potassium Level 4.0 Chloride Level 101 Carbon Dioxide 25 Level Anion Gap 6 Blood Urea 6 L Nitrogen Creatinine 0.46 Est Glomerular > 60 Filtrat Rate mL/min Glucose Level 81 Calcium Level 6.8 L Magnesium Level 6.3 *H 5.8 *H Lab Scanned BLOOD TRANSFUSI Report ON Subjective 24 Hr Interval Summary Free Text/Dictation POST CSECTION DAY 1 COMPLAIN OF INCISIONAL PAINS GOOD URINE OUTPUT PASSING GAS PER RECTUM NO BOWEL MOVEMENT YET Exam/Review of Systems Exam Vitals Vital Signs Date Temp Pulse Resp B/P (MAP) Pulse Ox O2 O2 Flow FiO2 Time Delivery Rate 06/05/18 82 18 129/72 15:30 (91) 06/05/18 Room Air 14:30 06/05/18 98.5 97 07:30 Intake and Output 06/04/18 06/04/18 06/05/18 1515:00 23:00 07:00 IntakeIntake Total 100 ml 1000 ml OutputOutput Total 250 ml 1100 ml 1800 ml BalanceBalance -150 ml -100 ml -1800 ml Exam VITAL SIGNS STABLE: YES AFEBRILE: YES BREAST NOT ENGORGED, NON-TENDER, NO APPRECIABLE MASS: YES LUNGS CLEAR, NO RALES, WHEEZES, RHONCHI: YES SINUS RHYTHM WITHOUT MURMUR: YES ABDOMEN: NON-TENDER FUNDUS: BELOW UMBILICUS BOWEL SOUNDS: PRESENT UTERUS: FIRM INCISION (CLEAN, DRY, AND INTACT): YES LOCHIA: LIGHT DEEP TENDON REFLEXES: 0 EXTREMITIES: NO CALF TENDERNESS EDEMA SCALE: NONE Results Results 24hrs Laboratory Tests Test 06/04/18 16:55 06/04/18 16:56 06/04/18 18:46 06/05/18 00:21 Blood Gas CBV CBA Specimen Source Arterial Blood 06/04/2018 5:10: 06/04/2018 5:11: Date Drawn 47 PM 02 PM Arterial Blood CORD CORD Gas Puncture Site Siddhartha Test N/A N/A Cord Blood 0.3 0.7 Carboxyhemoglobi n Cord Arterial 7.255 Blood pH Cord Arterial 62.6 H Blood PCO2 Cord Arterial 27.1 Blood HCO3 Cord Arterial -1.6 Blood Base Excess Cord Arterial 15.6 Blood Hemoglobin Cord Arterial 12.1 Blood Oxyhemoglo bin Cord Arterial 2.0 Blood Methemoglo bin Blood Gas 37.0 37.0 Temperature Blood Gas ROOM AIR ROOM AIR Modality FiO2 21.0 21.0 Blood Gas A MAN RN Critical Value Read Back Blood Gas SM Notified Whom Blood Gas 06/04/2018 5:23: 06/04/2018 5:29: Notified Time 24 PM 37 PM Cord Venous 7.357 Blood pH Cord Venous 43.1 Blood PCO2 Cord Venous 20.3 Blood PO2 Cord Venous 23.6 Blood HCO3 Cord Venous -1.9 Blood Base Excess POC Cord Venous 51.1 Blood Oxygen Sat Cord Venous 15.9 Blood Hemoglobin Cord Venous 49.9 Blood Oxyhemoglo bin Cord Venous 1.6 Blood Methemoglo bin Blood Gas A-a O2 77.8 Differential Magnesium Level 4.7 H 5.8 *H Test 06/05/18 06:10 06/05/18 06:43 06/05/18 12:00 White Blood 10.6 # Count Red Blood Count 3.65 L Hemoglobin 9.4 L Hematocrit 29.4 L Mean Corpuscular 80.5 Volume Mean Corpuscular 25.8 L Hemoglobin Mean Corpuscular 32.0 Hemoglobin Yessy nt Red Cell 14.9 H Distribution Width Platelet Count 252 Mean Platelet 9.8 Volume Immature 0.600 H Granulocytes % Neutrophils % 83.2 H Lymphocytes % 10.5 L Monocytes % 5.1 Eosinophils % 0.4 Basophils % 0.2 Nucleated Red 0.0 Blood Cells % Immature 0.060 H Granulocytes # Neutrophils # 8.9 H Lymphocytes # 1.1 Monocytes # 0.5 Eosinophils # 0.0 Basophils # 0.0 Nucleated Red 0.0 Blood Cells # Sodium Level 132 L Potassium Level 4.0 Chloride Level 101 Carbon Dioxide 25 Level Anion Gap 6 Blood Urea 6 L Nitrogen Creatinine 0.46 Est Glomerular > 60 Filtrat Rate mL/min Glucose Level 81 Calcium Level 6.8 L Magnesium Level 6.3 *H 5.8 *H Lab Scanned BLOOD TRANSFUSI Report ON Medications Medication Current Medications Terbutaline Sulfate (Brethine) 0.25 mg PRN PRN SC CONTRACTIONS Last administered on 06/03/18 03:50; Admin Dose 0.25 MG; Start 06/03/18 at 02:00 Prenat Multivit/ [place]/Iron/Folic Ac () 1 tab DAILY PO Last administered on 06/04/18 10:24; Admin Dose 1 TAB; Start 06/03/18 at 09:00 Acetaminophen (Tylenol Tab) 650 mg Q4H PRN PO .PAIN OR TEMP Last administered on 06/04/18 10:28; Admin Dose 650 MG; Start 06/03/18 at 02:00 Al Hydrox/Mg Hydrox/Simethicone (Mag-Al Plus) 30 ml Q6H PRN PO .GI UPSET Last administered on 06/04/18 10:29; Admin Dose 30 ML; Start 06/03/18 at 02:00 Ondansetron HCl (Zofran Inj) 4 mg Q6H PRN IV NAUSEA/VOMITING Last administered on 06/04/18 23:05; Admin Dose 4 MG; Start 06/03/18 at 02:00 Docusate Sodium (Colace) 100 mg TID PO Last administered on 06/04/18 10:24; Admin Dose 100 MG; Start 06/03/18 at 21:00 Nifedipine (Procardia) 10 mg Q6H PO Last administered on 06/05/18 11:50; Admin Dose 10 MG; Start 06/04/18 at 00:00 Magnesium Sulfate 500 ml @ 50 mls/hr Q10H IV Last administered on 06/05/18 10:20; Admin Dose 50 MLS/HR; Start 06/04/18 at 12:00 Famotidine (Pepcid Iv) 20 mg BID IV Last administered on 06/04/18 12:21; Admin Dose 20 MG; Start 06/04/18 at 12:00 Cefazolin Sodium/ Dextrose 50 ml @ 100 mls/hr ONCE IVPB ; Start 06/04/18 at 15:30 Oxytocin/Lactated Ringer's 500 ml @ 0 mls/hr ONCE PRN IV .VAGINAL BLEEDING; Start 06/04/18 at 15:30 Naloxone HCl (Narcan) 0.1 mg Q2M PRN IV .RESP RATE; Start 06/04/18 at 17:30; Stop 06/05/18 at 17:29 Ketorolac Tromethamine (Toradol) 30 mg Q6H PRN IV PAIN AFTER CSECTION Last administered on 06/05/18at 06:46; Admin Dose 30 MG; Start 06/04/18 at 17:30; Stop 06/05/18 at 17:29 Morphine Sulfate (morphine) 3 mg Q3 PRN IV .BREAKTHROUGH PAIN; Start 06/04/18 at 17:30; Stop 06/05/18 at 17:29 Morphine Sulfate (morphine) 2 mg Q3H PRN IV .PAIN 1-5; Start 06/04/18 at 17:30; Stop 06/05/18 at 17:29 Morphine Sulfate (morphine) 4 mg Q3H PRN IV .PAIN 6-10 Last administered on 06/04/18at 19:20; Admin Dose 4 MG; Start 06/04/18 at 17:30; Stop 06/05/18 at 17:29 Diphenhydramine HCl (Benadryl) 25 mg Q6H PRN IV .ITCHING; Start 06/04/18 at 17:30; Stop 06/05/18 at 17:29 Ondansetron HCl (Zofran Inj) 4 mg Q6H PRN IV .NAUSEA/VOMITING; Start 06/04/18 at 17:30; Stop 06/05/18 at 17:29 Methylergonovine Maleate (Methergine) 0.2 mg Q6H PRN PO .VAGINAL BLEEDING; Start 06/04/18 at 17:30 Acetaminophen/ Hydrocodone Bitart ([place] (5/325)) 1 tab Q4H PRN PO .PAIN 4-6; Start 06/04/18 at 17:30 Acetaminophen/ Hydrocodone Bitart ([place] (5/325)) 2 tab Q4H PRN PO .PAIN 7-10; Start 06/04/18 at 17:30 Ibuprofen (Motrin) 800 mg Q8 PRN PO MILD PAIN LEVEL 1-3; Start 06/04/18 at 17:30 Simethicone (Mylicon) 160 mg Q8H PRN PO .GAS; Start 06/04/18 at 17:30 Senna/Docusate Sodium (Senokot-S) 1 tab BID PO ; Start 06/04/18 at 21:00 Lanolin (Lanolin Hpa) 1 applic BEDSIDE MEDICATION PRN TOP .NIPPLES; Start 06/04/18 at 17:30 Diphtheria/ Tetanus/Acell Pertussis (Adacel) 0.5 ml ONCE ONCE IM* ; Start 06/07/18 at 09:00; Stop 06/07/18 at 09:01 Measles/Mumps/ Rubella Vaccine Live (Mmr Ii Vaccine) 0.5 ml ONCE ONCE SC* ; Start 06/07/18 at 09:00; Stop 06/07/18 at 09:01 Oxytocin/Lactated Ringer's 500 ml @ 0 mls/hr ONCE PRN IV .VAGINAL BLEEDING; Start 06/04/18 at 17:30 Methylergonovine Maleate (Methergine) 0.2 mg ONCE PRN IM .VAGINAL BLEEDING; Start 06/04/18 at 17:30 Carboprost Tromethamine (Hemabate) 250 mcg ONCE PRN IM .VAGINAL BLEEDING; Start 06/04/18 at 17:30 Misoprostol (Cytotec) 1,000 mcg ONCE PRN OK .VAGINAL BLEEDING; Start 06/04/18 at 17:30 LISETTE BARRERA MD Jun 05, 2018 15:59
[2018-06-05] MEDS: HYDROCODONE/APAP (5/325) TAB PO PRN (17:49)
[2018-06-05] MEDS: IBUPROFEN 800 MG TAB PO PRN (21:36)
[2018-06-06] MEDS: NIFEdipine 10 MG CAP PO SCH ×5 (00:07→23:30)
[2018-06-06] MEDS: HYDROCODONE/APAP (5/325) TAB PO PRN ×4 (01:36→21:49)
[2018-06-06 03:50] VITALS: BP 133/61; PULSE 75; RESP 19
[2018-06-06] MEDS: IBUPROFEN 800 MG TAB PO PRN ×2 (06:03→20:19)
[2018-06-06 08:00] VITALS: BP 148/80; PULSE 77; RESP 18
[2018-06-06] MEDS: FAMOTIDINE 20 MG INJ IV SCH (09:00)
[2018-06-06] MEDS: DOCUSATE SODIUM 100 MG CAP PO SCH ×3 (09:12→20:18)
[2018-06-06] MEDS: PRENATAL VITAMIN PO SCH (09:12)
[2018-06-06] MEDS: SENNA/DOCUSATE NA (8.6MG/50MG) TAB PO SCH ×2 (09:12→20:18)
--- NOTE | 2018-06-06 15:58 | PN ---
Date/Time of Note Date/Time of Note DATE: 06/06/18 TIME: 15:57 Assessment/Plan VTE Prophylaxis Risk score (from Nsg)>0 risk: 3 SCD applied (from Ns): No SCD contraindicated: low risk/ambulating Pharmacological prophylaxis: NA/contraindicated Pharm contraindication: low risk/ambulating Lines/Catheters IV Catheter Type (from Nrsg): Saline Lock Assessment/Plan Assessment/Plan POST CSECTION DAY 2 HOME TOMORROW CBC TOMORROW COUNSELED INSTRUCTED PRESCRIPTION GIVEN FOR PAIN RETURN TO CLINIC IN 2 WEEKS CALL OFFICE IF THERE IS ANY PROBLEM OR CONCERN CONTINUE WITH VITAMINS OD AND FERROUS SULFATE 325MG PO TID DIET ADVISED Result Diagram: 06/05/18 0610 06/05/18 0610 Subjective 24 Hr Interval Summary Free Text/Dictation POST CSECTION DAY 2 LITTLE BOWEL MOVEMENT GOOD URINE OUTPUT FEELS LESS INCISIONAL PAINS Exam/Review of Systems Exam Vitals Vital Signs Date Temp Pulse Resp B/P (MAP) Pulse Ox O2 O2 Flow FiO2 Time Delivery Rate 06/06/18 98.0 77 18 148/80 Room Air 08:00 (102) 06/05/18 97 07:30 Intake and Output 06/05/18 06/05/18 06/06/18 1515:00 23:00 07:00 IntakeIntake Total 1460 ml 250 ml OutputOutput Total 2050 ml 1200 ml 400 ml BalanceBalance -590 ml -950 ml -400 ml Exam VITAL SIGNS STABLE: YES AFEBRILE: YES BREAST NOT ENGORGED, NON-TENDER, NO APPRECIABLE MASS: YES LUNGS CLEAR, NO RALES, WHEEZES, RHONCHI: YES SINUS RHYTHM WITHOUT MURMUR: YES ABDOMEN: NON-TENDER FUNDUS: BELOW UMBILICUS BOWEL SOUNDS: PRESENT UTERUS: FIRM INCISION (CLEAN, DRY, AND INTACT): YES LOCHIA: LIGHT DEEP TENDON REFLEXES: 0 EXTREMITIES: NO CALF TENDERNESS EDEMA SCALE: NONE Medications Medication Current Medications Prenat Multivit/ [employer]/Iron/Folic Ac () 1 tab DAILY PO Last administered on 06/06/18at 09:12; Admin Dose 1 TAB; Start 06/03/18 at 09:00 Acetaminophen (Tylenol Tab) 650 mg Q4H PRN PO .PAIN OR TEMP Last administered on 06/04/18at 10:28; Admin Dose 650 MG; Start 06/03/18 at 02:00 Al Hydrox/Mg Hydrox/Simethicone (Mag-Al Plus) 30 ml Q6H PRN PO .GI UPSET Last administered on 06/04/18 10:29; Admin Dose 30 ML; Start 06/03/18 at 02:00 Ondansetron HCl (Zofran Inj) 4 mg Q6H PRN IV NAUSEA/VOMITING Last administered on 06/04/18 23:05; Admin Dose 4 MG; Start 06/03/18 at 02:00 Docusate Sodium (Colace) 100 mg TID PO Last administered on 06/06/18 14:36; Admin Dose 100 MG; Start 06/03/18 at 21:00 Nifedipine (Procardia) 10 mg Q6H PO Last administered on 06/06/18 11:56; Admin Dose 10 MG; Start 06/04/18 at 00:00 Oxytocin/Lactated Ringer's 500 ml @ 0 mls/hr ONCE PRN IV .VAGINAL BLEEDING; Start 06/04/18 at 15:30 Methylergonovine Maleate (Methergine) 0.2 mg Q6H PRN PO .VAGINAL BLEEDING; Start 06/04/18 at 17:30 Acetaminophen/ Hydrocodone Bitart ([place] (5/325)) 1 tab Q4H PRN PO .PAIN 4-6; Start 06/04/18 at 17:30 Acetaminophen/ Hydrocodone Bitart ([place] (5/325)) 2 tab Q4H PRN PO .PAIN 7-10 Last administered on 06/06/18 14:39; Admin Dose 2 TAB; Start 06/04/18 at 17:30 Ibuprofen (Motrin) 800 mg Q8 PRN PO MILD PAIN LEVEL 1-3 Last administered on 06/06/18 06:03; Admin Dose 800 MG; Start 06/04/18 at 17:30 Simethicone (Mylicon) 160 mg Q8H PRN PO .GAS Last administered on 06/05/18 17:28; Admin Dose 160 MG; Start 06/04/18 at 17:30 Senna/Docusate Sodium (Senokot-S) 1 tab BID PO Last administered on 06/06/18 09:12; Admin Dose 1 TAB; Start 06/04/18 at 21:00 Lanolin (Lanolin Hpa) 1 applic BEDSIDE MEDICATION PRN TOP .NIPPLES Last administered on 06/05/18at 21:36; Admin Dose 1 APPLIC; Start 06/04/18 at 17:30 Diphtheria/ Tetanus/Acell Pertussis (Adacel) 0.5 ml ONCE ONCE IM* ; Start 06/07/18 at 09:00; Stop 06/07/18 at 09:01 Measles/Mumps/ Rubella Vaccine Live (Mmr Ii Vaccine) 0.5 ml ONCE ONCE SC* ; Start 06/07/18 at 09:00; Stop 06/07/18 at 09:01 Oxytocin/Lactated Ringer's 500 ml @ 0 mls/hr ONCE PRN IV .VAGINAL BLEEDING; Start 06/04/18 at 17:30 Methylergonovine Maleate (Methergine) 0.2 mg ONCE PRN IM .VAGINAL BLEEDING; Start 06/04/18 at 17:30 Carboprost Tromethamine (Hemabate) 250 mcg ONCE PRN IM .VAGINAL BLEEDING; Start 06/04/18 at 17:30 Misoprostol (Cytotec) 1,000 mcg ONCE PRN OK .VAGINAL BLEEDING; Start 06/04/18 at 17:30 LISETTE BARRERA MD Jun 06, 2018 15:58
[2018-06-06 16:00] VITALS: BP 140/91; PULSE 73; RESP 18
--- NOTE | 2018-06-06 16:14 | OPR ---
DATE OF OPERATION: 06/04/2018 PREOPERATIVE DIAGNOSES: 1. A 33 and 5/7 weeks' intrauterine . 2. Severe -induced hypertension. 3. labor. POSTOPERATIVE DIAGNOSES: 1. A 33 and 5/7 weeks' intrauterine . 2. Severe -induced hypertension. 3. labor. OPERATION PERFORMED: Primary low transverse section. SURGEON: Lisette Ashley MD MANAGER IMMUNOLOGY: Niall Salvador MD ANESTHESIA: Spinal. ANESTHESIOLOGIST: Adry Amador MD OPERATIVE TECHNIQUE: Under spinal anesthesia, the patient was prepped and draped in the usual fashio n for abdominal surgery. After checking for the effect of the anesthesia, Pfannenstiel incision of 1 0 cm skin incision was performed. The incision was carried from the skin up to the fascia. Upon ope oscar the skin up to the fascia, small blood vessels were noted to be oozing and these were all cauter ized. Fascia was opened transversely followed by splitting the muscles vertical and the peritoneum v ertically. Upon opening the abdominal cavity, the bladder blade was put in place. A small edwina was performed from the serosa up to the endometrium and the lower uterine segment and the edwina was emily d sideways with the aid of my 2 fingers. My left hand was inserted in the lower segment of the uteru s and the bag of water was ruptured. Clear fluid was noted. Baby's head was delivered. The baby's airways were quickly suctioned with amniotic fluid. There were 2 loops of tight cord around the baby 's neck that needed to be released prior to the delivery of the rest of the body of the baby. Baby's cord was clamped and the baby was handed to the NICU team. The placenta was delivered manually and complete. The uterus was exteriorized. The uterus was cleansed with wet lap sponge to make sure adonis t no membranes were left behind. After correct sponge count, the uterus was closed in the usua l fashion using #1 chromic for the first layer, continuous locking suture was used followed by #1 chr omic for the second layer, imbricating sutures were used. Bleeders were checked and there was no ble eding noted. After checking for any bleeders in which there were none, both tubes and ovaries were i nspected. They were healthy looking. The broad ligaments were checked for any hematoma and there wa s none noted. The uterus was put back to the pelvic cavity. Once again, uterine incision was checke d for any bleeders and there was no bleeding noted. After correct sponge count, needle count and ins trument count as confirmed by the cnc maintenance technician and inspector glass or mirror, the abdomen was closed in the usual fash ion using 0 Vicryl for the peritoneum, 0 Vicryl for the muscles. For the fascia, 0 Vicryl continuous stitch was used followed by few [id number] suture. For the subcutaneous tissue, it was closed with 3-0 Vicryl and the skin was closed with 3-0 Vicryl, subcuticular suture was used. The patient t olerated the procedure well. Estimated blood loss was 600 mL. Vital signs were stable during and af ter the procedure. She delivered a healthy baby on the 06/04/2018 at 16:34. Apgars 8 and 9, weighin g 3 pounds and 14 ounces, 1760 grams, 16.5 inches long. Dictated By: LISETTE ARTIS/RHETT Conf#: [id number] DID#: [id number]
[2018-06-06 20:20] VITALS: BP 140/95
[2018-06-06] MEDS ORDERED: MAGNESIUM HYDROXIDE 30ML CUP PO PRN (20:30)
[2018-06-06] MEDS ORDERED: BISACODYL 10 MG SUPP PR ONE (20:30)
[2018-06-06] MEDS ORDERED: FAMOTIDINE 20 MG TAB PO SCH (21:00)
[2018-06-06] MEDS ORDERED: FAMOTIDINE 20 MG INJ IV SCH (21:00)
[2018-06-07] VITALS: BP 128/65; PULSE 84; RESP 18
[2018-06-07 03:55] VITALS: BP 137/74; PULSE 88; RESP 18
[2018-06-07] MEDS: NIFEdipine 10 MG CAP PO SCH ×2 (06:00→12:28)
[2018-06-07] MEDS: HYDROCODONE/APAP (5/325) TAB PO PRN (06:01)
[2018-06-07 08:15] VITALS: BP 118/71; PULSE 92; RESP 18
[2018-06-07] MEDS ORDERED: DIPHTH/TET/ACEL PERTUSS (ADULT) 0.5 ML VIAL IM* ONE (09:00)
[2018-06-07] MEDS ORDERED: MEASLES,MUMPS,RUBELLA VACCINE INJ SC* ONE (09:00)
[2018-06-07] MEDS: DOCUSATE SODIUM 100 MG CAP PO SCH ×2 (09:12→13:54)
[2018-06-07] MEDS: SENNA/DOCUSATE NA (8.6MG/50MG) TAB PO SCH (09:12)
[2018-06-07] MEDS: PRENATAL VITAMIN PO SCH (09:12)
== END 2018-06-07 14:38 | disposition home or self-care (01) | DRG 788 ==
LOC: OBT 21:55 → L-D 21:57 → OBT 06-03 01:50 → L-D 06-03 01:50 → PP1 06-04 20:15
PROVIDERS: ADMIT Obstetrics & Gynecology; ATTEND Obstetrics & Gynecology
PROC: 10D00Z1 Extraction of Products of Conception, Low, Open Approach (ICD-10-PCS; principal; 2018-06-04 16:00)
DX: O60.14X0 Preterm labor third trimester with preterm delivery third trimester, not applicable or unspecified (principal); O13.4 Gestational [pregnancy-induced] hypertension without significant proteinuria, complicating childbirth; Z3A.33 33 weeks gestation of pregnancy; Z37.0 Single live birth
CPT/HCPCS: 36415; 36430; 36600; 76815; 76818; 80048; 80053; 80307; 81001; 82803; 83735; 84560; 85025; 85362; 85384; 85610; 85730; 86592; 86850; 86900; 86901; 86920; 87070; 87086; 87102; 88307; 90715; 96360; 99464; G0463; J0690; J1885; J2270; J2274; J2405; J2590; J2765; J3105; J3475; J7120; P9016